=== PATIENT | male | born 1940 | race Caucasian/White ===

== ENCOUNTER 2021-06-08 15:34 | Inpatient (IN) | payer MEDICARE, OTHER ==
[~2021-06-08] VITALS: Ht 175.2 cm; Wt 80.4 kg
[2021-06-08] MEDS ORDERED: ASPIRIN CHEWABL81 MG PO (16:24)
[2021-06-08] MEDS ORDERED: CITALOPRAM10 MG PO (16:25)
[2021-06-08] MEDS ORDERED: FUROSEMIDE20 M1 PO (16:27)
[2021-06-08] MEDS ORDERED: LORAZEPAM0.5 MG PO (16:28)
[2021-06-08] MEDS ORDERED: MELATONIN5 M7 PO (16:31)
[2021-06-08] MEDS ORDERED: NAMENDA10 MG PO (16:32)
[2021-06-08] MEDS ORDERED: QUETIAPINE FUMA25 M1 PO (16:35)
[2021-06-08] MEDS ORDERED: VITAMIN B121000 MC1 PO (16:37)
[2021-06-08] MEDS ORDERED: VITAMIN D325 MCG PO (16:43)
[2021-06-08] MEDS ORDERED: DEPAKOTE500 MG PO (17:25)
[2021-06-08 21:45] VITALS: BP 125/61
[2021-06-09 06:14] LABS: BASO % 0.5 % (0.0-1.0); EOS # 0.2 10*3/uL (0.0-0.4); HEMATOCRIT 40.5 % (42.0-52.0); LYMPH # 1.8 10*3/uL (1.3-4.4); LYMPH % 24.6 % (27.0-41.0); MEAN CELL VOLUME 87.5 fl (80.0-94.0); MEAN CORPUSCULAR HGB 28.7 pg (27.0-31.0); MEAN CORPUSCULAR HGB CONC 32.8 g/dl (33.0-37.0); MEAN PLATELET VOLUME 8.8 fl (9.6-12.3); MONO # 0.7 10*3/uL (0.1-1.0); MONO % 9.2 % (3.0-9.0); NEUT # 4.6 10*3/uL (2.3-7.9); PLATELET COUNT AUTOMATED 213 10*3/uL (130-400); RED BLOOD COUNT 4.63 10*6/uL (4.50-5.90); RED CELL DISTRI WIDTH 13.7 % (0-14.5); WHITE BLOOD COUNT 7.4 10*3/uL (4.8-10.8)
[2021-06-09 06:31] LABS: ALKALINE PHOSPHATASE 81 U/L (45-117); BUN 10 mg/dl (7-24); CHLORIDE 110 mmol/L (98-107); CHOLESTEROL 242 mg/dL (<200); CREATININE 0.87 mg/dL (0.70-1.30); LDL CHOLESTEROL 192 mg/dL (9-159); POTASSIUM 3.9 mmol/L (3.5-5.1); SGOT/AST 8 IU/L (3-35); SGPT/ALT 13 U/L (12-78); SODIUM 139 mmol/L (136-145); TOTAL PROTEIN 6.4 gm/dL (6.4-8.2); TRIGLYCERIDES 76 mg/dl (<150)
[2021-06-09 07:03] VITALS: BP 136/70
[2021-06-09 07:19] LABS: VITAMIN D, 25-HYDROXY 41.9 ng/mL (30-100)
[2021-06-09 14:00] VITALS: BP 136/70
[2021-06-09 20:19] VITALS: BP 114/77
[2021-06-10 07:36] VITALS: BP 116/72
[2021-06-10 12:10] VITALS: BP 116/72
[2021-06-10 19:57] VITALS: BP 126/62
[2021-06-11 07:21] VITALS: BP 124/78
[2021-06-11 11:03] LABS: BILIRUBIN Negative (Negative); BLOOD Negative (Negative); CLARITY Clear (Clear); COLOR Yellow (Yellow); GLUCOSE Negative (Negative); KETONE 1+ (Negative); LEUKO ESTERASE Negative (Negative); NITRITE Negative (Negative)
[2021-06-11 11:12] LABS: BACTERIA TRACE; EPITHELIAL CELLS 0-2; MUCOUS 1+; RBC 0-2 rbc/hpf (0-2)
[2021-06-11 14:00] VITALS: BP 124/78
[2021-06-12 07:25] VITALS: BP 115/54
[2021-06-12 20:00] VITALS: BP 121/65
[2021-06-13 07:58] VITALS: BP 110/56
[2021-06-13 20:00] VITALS: BP 124/62
[2021-06-14 07:38] VITALS: BP 120/68
[2021-06-14 20:00] VITALS: BP 134/84
[2021-06-15 07:48] VITALS: BP 110/56
[2021-06-15 20:00] VITALS: BP 129/86
[2021-06-16 07:32] VITALS: BP 104/69
[2021-06-16 20:00] VITALS: BP 110/60
[2021-06-17 07:18] VITALS: BP 102/68
[2021-06-17 20:00] VITALS: BP 134/73
[2021-06-18 07:08] VITALS: BP 130/72
[2021-06-18 20:00] VITALS: BP 121/76
[2021-06-19 07:20] VITALS: BP 123/75
[2021-06-19 20:00] VITALS: BP 124/62
[2021-06-20 07:34] VITALS: BP 121/58; BP 124/56
[2021-06-20 09:47] LABS: BASO # 0.1 10*3/uL (0.0-0.1); BASO % 0.6 % (0.0-1.0); EOS # 0.2 10*3/uL (0.0-0.4); EOS % 1.9 % (1.0-4.0); HEMATOCRIT 42.3 % (42.0-52.0); LYMPH # 1.8 10*3/uL (1.3-4.4); LYMPH % 18.6 % (27.0-41.0); MEAN CELL VOLUME 88.9 fl (80.0-94.0); MEAN CORPUSCULAR HGB CONC 32.6 g/dl (33.0-37.0); MEAN PLATELET VOLUME 9.1 fl (9.6-12.3); MONO # 0.9 10*3/uL (0.1-1.0); MONO % 9.8 % (3.0-9.0); NEUT # 6.4 10*3/uL (2.3-7.9); NEUT % 67.6 % (47.0-73.0); PLATELET COUNT AUTOMATED 168 10*3/uL (130-400); RED BLOOD COUNT 4.76 10*6/uL (4.50-5.90); RED CELL DISTRI WIDTH 13.5 % (0-14.5); WHITE BLOOD COUNT 9.4 10*3/uL (4.8-10.8)
[2021-06-20 10:05] LABS: ALBUMIN 3.2 gm/dl (3.1-4.5); BUN 15 mg/dl (7-24); CHLORIDE 109 mmol/L (98-107); CREATININE 0.95 mg/dL (0.70-1.30); SGOT/AST 13 IU/L (3-35); SGPT/ALT 15 U/L (12-78); SODIUM 141 mmol/L (136-145)
[2021-06-20 10:08] LABS: ALKALINE PHOSPHATASE 97 U/L (45-117); TOTAL PROTEIN 6.4 gm/dL (6.4-8.2)
[2021-06-20 20:00] VITALS: BP 138/78
[2021-06-21 07:46] VITALS: BP 121/57
[2021-06-21 20:00] VITALS: BP 129/74
[2021-06-22 07:18] VITALS: BP 116/57
[2021-06-22 20:00] VITALS: BP 131/72
[2021-06-23 07:59] VITALS: BP 112/58
[2021-06-23 20:00] VITALS: BP 103/67
[2021-06-24 08:01] VITALS: BP 108/68
[2021-06-24 20:00] VITALS: BP 115/59
[2021-06-25 07:19] VITALS: BP 101/58; BP 132/76
[2021-06-25] MEDS ORDERED: Vitamin D (1,000 UNI PO (09:51)
[2021-06-25] MEDS ORDERED: ROZEREM8 MG PO (09:51)
[2021-06-25] MEDS ORDERED: RIVASTIGMINE1 EAC2 T (09:51)
[2021-06-25] MEDS ORDERED: PHARMASSURE V500 MCG PO (09:51)
[2021-06-25] MEDS ORDERED: MEMANTINE HCL10 MG PO (09:51)
[2021-06-25] MEDS ORDERED: ATORVASTATIN CA40 M1 PO (11:30)
== END 2021-06-25 14:19 | DRG 883 ==
LOC: 3N 15:34
PROVIDERS: Counselor Professional; ADMIT Psychiatry & Neurology Psychiatry; ATTEND Psychiatry & Neurology Psychiatry
DX: F63.81 Intermittent explosive disorder (principal); F33.9 Major depressive disorder, recurrent, unspecified; E44.0 Moderate protein-calorie malnutrition; F02.81 Dementia in other diseases classified elsewhere, unspecified severity, with behavioral disturbance; G30.9 Alzheimer's disease, unspecified; I25.10 Atherosclerotic heart disease of native coronary artery without angina pectoris; E78.2 Mixed hyperlipidemia; G40.909 Epilepsy, unspecified, not intractable, without status epilepticus; F41.1 Generalized anxiety disorder; E87.8 Other disorders of electrolyte and fluid balance, not elsewhere classified; D64.9 Anemia, unspecified; R73.03 Prediabetes; Z79.82 Long term (current) use of aspirin; Z79.899 Other long term (current) drug therapy